=== PATIENT | male | born 1970 | race Caucasian/White ===

== ENCOUNTER 2021-11-24 18:29 | Inpatient (IN) | payer SELFPAY ==
[~2021-11-24] VITALS: Ht 170.2 cm; Wt 89.4 kg
[2021-11-24 18:31] VITALS: BP 138/93
[2021-11-24 19:07] LABS: BASOPHILS # (AUTO) 0.1 K/uL (0.00-0.22); EOSINOPHILS # (AUTO) 0.3 K/uL (0-0.4); EOSINOPHILS % (AUTO) 3.4 % (0.0-4.0); HEMATOCRIT 43.5 % (36-52); HEMOGLOBIN 14.7 g/dL (12.0-18.0); LYMPHOCYTES # (AUTO) 2.7 K/uL (2.0-11.5); MEAN CORPUSCULAR HEMOGLOBIN 29 pg (27-31); MEAN CORPUSCULAR HGB CONC 34 g/dL (33-37); MEAN CORPUSCULAR VOLUME 85.5 fL (80-94); MONOCYTES # (AUTO) 0.9 K/uL (0.8-1.0); MONOCYTES % (AUTO) 10.8 % (1.7-9.3); NEUTROPHILS # (AUTO) 4.4 K/uL (1.8-7.7); NEUTROPHILS % (AUTO) 52.8 % (42.2-75.2); PLATELET COUNT (AUTO) 427 K/uL (140-450); RED BLOOD CELL COUNT(AUTO) 5.09 MIL/uL (4.20-6.10); RED CELL DISTRIBUTION WIDTH 13.8 % (11.6-13.7); WHITE BLOOD COUNT (AUTO) 8.4 K/uL (4.8-10.8)
[2021-11-24 19:36] LABS: ALBUMIN 3.4 g/dL (3.4-5.0); ANION GAP 13.3 (8-16); ASPARTATE AMINOTRANSFERASE 15 U/L (15-37); CARBON DIOXIDE 28.6 mmol/L (21-32); CHLORIDE 105 mmol/L (98-107); CREATININE 1.2 mg/dL (0.6-1.3); GFR ARICAN-AMERICAN 82 mL/min (>90); GLUCOSE 106 mg/dL (74-106); POTASSIUM 3.9 mmol/L (3.5-5.1); SODIUM SERUM 143 mmol/L (136-145); TOTAL BILIRUBIN 0.3 mg/dL (0.0-1.0); UREA NITROGEN, BLOOD 18 mg/dL (7-18)
--- NOTE | 2021-11-24 19:50 | NUR ---
Patient resting in bed, A/Ox3, chest rise and fall symmetrical, no c/o pain or s/s of discomfort.
--- NOTE | 2021-11-24 20:30 | NUR ---
Patient resting in bed, A/Ox3, chest rise and fall symmetrical, no c/o pain or s/s of discomfort.
[2021-11-24] MEDS ORDERED: NALOXONE 0.4 MG/ML VIAL IVP ONE ×3 (20:40→22:20)
[2021-11-24] MEDS ORDERED: NACL 0.9% 1,000 ML IV ONE (21:00)
--- NOTE | 2021-11-24 21:08 | NUR ---
Patient resting in bed, A/Ox3, chest rise and fall symmetrical, no c/o pain or s/s of discomfort.
[2021-11-24] MEDS ORDERED: NACL 0.9% IV SCH (22:30)
[2021-11-24] MEDS ORDERED: NALOXONE PFS IV SCH (22:30)
[2021-11-24] MEDS ORDERED: NALOXONE 0.4 MG/ML VIAL ONE ×2 (23:08→23:10)
--- NOTE | 2021-11-24 23:45 | NUR ---
Narcan (2mg in NS 500mL bag)drip started at 1mg per hour, via 18G left AC. NADR
[2021-11-24] MEDS: NALOXONE IV SCH (23:56)
[2021-11-24] MEDS: NACL 0.9% IV SCH (23:56)
[2021-11-25] VITALS (12 sets, daily range): BP systolic 99–133; BP diastolic 65–83
[2021-11-25 01:13] LABS: BARBITURATE, URINE NEGATIVE ng/ml (NEG <=200); BENZODIAZEPINE, URINE NEGATIVE ng/mL (NEG <=200); COCAINE, URINE NEGATIVE ng/mL (NEG <=300)
[2021-11-25 01:14] LABS: CANNABINOID, URINE POSITIVE ng/mL (NEG <=50); OPIATE, URINE NEGATIVE ng/mL (NEG <=2000); PHENCYCLIDINE SCREEN,URINE NEGATIVE ng/mL (NEG <=25)
--- NOTE | 2021-11-25 02:18 | NUR ---
Dr. Francois contacted via phoe and verbally informed that patient's Narcan drip has run out and Brush Worker stated that there is no more Narcan available in hospital. Dr. Francois verbalized understanding and ordered BiPAP and 0400 ABG. Order readback confirmed, orders entered. RT arrived and applying BiPap to patient.
--- NOTE | 2021-11-25 03:00 | NUR ---
Patient is laying in bed, respirations even and unlabored, patient on Bipap.
--- NOTE | 2021-11-25 03:19 | NUR ---
Asked RN if there is a need for narcan drip; told the nurse that can call the pharmacist for narcan drip
--- NOTE | 2021-11-25 03:27 | NUR ---
Remodeler Juan Luis MALDONADO called and informed that Dr. Francois confirmed continuing Narcan drip, and Remodeler verbalized understanding. Remodeler to call pharmacy.
--- NOTE | 2021-11-25 03:31 | NUR ---
Texted Jose Eduardo pharmacist, stated in the hospital in 20 minutes to make narcan drip
--- NOTE | 2021-11-25 04:00 | NUR ---
Respiratory Therapist at bedside
--- NOTE | 2021-11-25 04:09 | NUR ---
Jose Eduardo Pharmacist made only 1 bag 2mg in 500ml NS; stated to wait in the morning for another bag because there is not enough narcan
[2021-11-25] MEDS ORDERED: NALOXONE 0.4 MG/ML VIAL ONE ×2 (04:15→04:16)
[2021-11-25] MEDS ORDERED: NALOXONE 0.4 MG/ML VIAL IVP ONE (04:20)
--- NOTE | 2021-11-25 04:40 | NUR ---
BI-PAP REMOVED PER PT REQUEST, PT IS IN NO RESPIRATORY DISTRESS. PT IS ON ROOM AIR AT THIS TIME. BI-PAP ON STAND-BY IN PT ROOM. WILL CONTINUE TO MONITOR. FOOLOW-UP ABG ORDERED BY DR. PAGE AT 0600
[2021-11-25] MEDS ORDERED: DOCUSATE SODIUM 100 MG GELCAP PO PRN (05:00)
[2021-11-25] MEDS ORDERED: ONDANSETRON 4 MG/2 ML VIAL IM/IVP PRN (05:00)
[2021-11-25] MEDS ORDERED: POTASSIUM CHLORIDE 10 MEQ TABER PO PRN (05:00)
[2021-11-25] MEDS ORDERED: ALBUTEROL SULFATE/IPRATROPIU 3 ML SOL IH PRN (05:00)
[2021-11-25] MEDS ORDERED: ZOLPIDEM 5 MG TAB PO PRN (05:00)
[2021-11-25] MEDS ORDERED: ACETAMINOPHEN 325 MG TAB PO PRN (05:00)
[2021-11-25] MEDS ORDERED: HYDROcodone/APAP 7.5/325 MG 1 TAB PO PRN (05:00)
[2021-11-25] MEDS ORDERED: guaiFENesin DM 200/20 MG-10 ML 10 ML UDC PO PRN (05:00)
[2021-11-25] MEDS: NACL 0.9% IV SCH ×5 (05:28→21:31)
[2021-11-25] MEDS: NALOXONE IV SCH (05:28)
--- NOTE | 2021-11-25 05:28 | NUR ---
Patient's RR decreased to 8, Narcan drip started, 1mg/hr, per Dr. Francois orders.
--- NOTE | 2021-11-25 05:35 | NUR ---
Patient is A/Ox4, laying in bed, chest rise and fall even, respirations unlabored, patient on Narcan drip, no c/o pain or s/s of discomfort.
--- NOTE | 2021-11-25 06:00 | NUR ---
Patient is A/Ox4, laying in bed, chest rise and fall even, respirations unlabored, patient on Narcan drip, no c/o pain or s/s of discomfort.
--- NOTE | 2021-11-25 06:04 | NUR ---
Dr. Francois examining patient.
--- NOTE | 2021-11-25 06:05 | NUR ---
Dr. Francois at patient bedside speaking with patient.
--- NOTE | 2021-11-25 07:03 | NUR ---
Patient is A/Ox4, laying in bed, chest rise and fall even, respirations unlabored, patient on Narcan drip, no c/o pain or s/s of discomfort.
--- NOTE | 2021-11-25 07:16 | NUR ---
PT MOVED TO ER BED 4
[2021-11-25 07:22] LABS: BASOPHILS % (AUTO) 0.2 % (0.0-2.0); HEMATOCRIT 41.8 % (36-52); LYMPHOCYTES # (AUTO) 0.6 K/uL (2.0-11.5); MEAN CORPUSCULAR HEMOGLOBIN 29 pg (27-31); MEAN CORPUSCULAR HGB CONC 34 g/dL (33-37); MEAN CORPUSCULAR VOLUME 85.7 fL (80-94); MONOCYTES # (AUTO) 1.3 K/uL (0.8-1.0); NEUTROPHILS # (AUTO) 16.7 K/uL (1.8-7.7); NEUTROPHILS % (AUTO) 89.8 % (42.2-75.2); PLATELET COUNT (AUTO) 389 K/uL (140-450); RED BLOOD CELL COUNT(AUTO) 4.88 MIL/uL (4.20-6.10); RED CELL DISTRIBUTION WIDTH 13.8 % (11.6-13.7); WHITE BLOOD COUNT (AUTO) 18.6 K/uL (4.8-10.8)
--- NOTE | 2021-11-25 07:34 | NUR ---
Change of shift report given to AM shift Nurse Kalen MALDONADO. AM shift Nurse Kalen MALDONADO verbalized understanding, no further questions.
[2021-11-25 07:53] LABS: PROTHROMBIN TIME 10.5 secs (10.8-13.4)
[2021-11-25 08:02] LABS: ANION GAP 13.1 (8-16); CARBON DIOXIDE 25.8 mmol/L (21-32); CREATININE 1.2 mg/dL (0.6-1.3); POTASSIUM 4.9 mmol/L (3.5-5.1)
[2021-11-25 08:03] LABS: MAGNESIUM 1.7 mg/dL (1.8-2.4); THYROID STIMULATING HORMONE 0.21 uIU/mL (0.34-3.74)
[2021-11-25] MEDS: PANTOPRAZOLE 40 MG TABEC PO SCH (09:00)
--- NOTE | 2021-11-25 09:10 | NUR ---
SWITCHED PT TO 7L HIGH FLOW BUBBLER. SATURATION 97%
--- NOTE | 2021-11-25 09:28 | NUR ---
PATIENT HAS BEEN SCREENED AND CATEGORIZED LOW NUTRITION RISK. PATIENT WILL BE SEEN WITHIN 7 DAYS OF ADMISSION. 12/02/[address]
--- NOTE | 2021-11-25 12:33 | NUR ---
Patient will be admitted to care of Dr. Francois. Admited to ICU. Will go to room 2. Belongings list completed. Report to Dinesh, TRACTOR DRILL OPERATOR.
--- NOTE | 2021-11-25 12:40 | NUR ---
PT TRANSFERRED FROM ER TO ICU BED 5. SBAR REPORT RECEIVED FROM CARLA MALDONADO, ALL CARES ASSUMED. PT AMBULATED WITH ASSISTANCE FROM [place] TO BED. PT ON 4L NC. IIV CATHETER 18G TO LEFT FOREARM INTACT, RUNNING NARCAN DRIP AT 1MG/HR. PT AWAKE AND ALERT, CONVERSING WITH STAFF. BED IN LOW, LOCKED POSITION, CALL LIGHT WITHIN REACH.
[2021-11-25] MEDS: NALOXONE PFS IV SCH ×4 (13:12→21:31)
--- NOTE | 2021-11-25 15:00 | NUR ---
SPOKE WITH SISTER DAVE, UPDATE GIVEN, ALL QUESTIONS ANSWERED AT THIS TIME. SISTER ALSO SPOKE WITH PT AT TIME OF CALL.
--- NOTE | 2021-11-25 15:22 | NUR ---
DC PLANNING SATHYA MET WITH PATIENT AT [facility] TO COMPLETE ASSESSMENT. PATIENT REPORTS RESIDING AT HOME [place] AT THE ADDRESS LISTED ON FILE. PATIENT IDENTIFIED GARRY ALMARAZ, BROTHER, EMERGENCY CONTACT AND MDM. PATIENT DENIED HAVING AD IN PLACE AND DECLINED AD OFFERED BY SATHYA. PATIENT REPORTS HE CURRENTLY STARTED NEW JOB AND CURRENTLY DOES NOT HAVE A PCP. PATIENT STRUGGLED TO RECALL VISIT WITH PCP AND REPORTS LONGER THAN 2 YEARS AGO. PATIENT REPORTS NEW EMPLOYMENT WITH [employer] ABOUT 3-4 WEEKS AGO. PATIENT REPORTS HE DOES NOT TAKE MEDICATION AT THIS TIME. PATIENT REPORTS BEIGN AMBULATORY AND DENIES USE OF DME. PATIENT CAN COMPLETE ALL ADL'S INDEPENDENTLY. PATIENT DENIED MH HX. 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 PATIENT REPORTS THIS HOSPITALIZATION WAS DUE TO COCAINE USE AND HAVING NO IDEA WHAT IT WAS LACED WITH. SATHYA ATTEMPTED TO PROVIDE PATIENT WITH PSYCHOEDUCATION ON SUBSTANCE USE, HOWEVER, PATIENT ADAMANTLY DENIES USE, PRIOR TO THIS INCIDENT. PATIENT REFUSED SUBSTANCE USE RESOURCES OFFERED BY SATHYA. PATIENT REPORTS DC PLAN IS TO RETURN HOME ONCE MEDICALLY STABLE. SATHYA INQUIRED ON RESOURCES NEEDED, PATIENT DECLINED.
[2021-11-25] MEDS ORDERED: MAG SULF 2000 MG/WATER PREMIX 50 ML IV ONE (19:00)
--- NOTE | 2021-11-25 19:20 | NUR ---
Assumed pt care report recveived Addendum: 11/25/21 at 2342 by Agency Nurse 23, JOEL RN @ 1920 bedside report received from Angeles MALDONADO
--- NOTE | 2021-11-25 19:23 | NUR ---
SBAR REPORT GIVEN TO WILLIAM MALDONADO, ALL CARES ENDORSED.
--- NOTE | 2021-11-25 19:46 | NUR ---
Pt awake alert oriented x4 denies pain moves all extremities no traces distress. Ongoing Narcan drip as report pt overdose on Fentanyl drip @0.6MJG/HR tolerating well no complaints. Oxygen support 4liters nasal canulla O2 SAT 97% RR 9 to 10 vitals signs stable afebrile. Pt education on care plan encouraged to verbalized his concerns, bed in low position, call light at reach no withdrawal symptoms noted no neuro deficit noted moves in all extremities and against resistance . Continue to monitor and treat as per care plan
--- NOTE | 2021-11-25 20:36 | NUR ---
Received telephone call from Poison control spoke to Kimani updates on pt's condition rate of Narcan drip, vitals signs, suggestion is to continue same treatments and monitor pt's response/condition
[2021-11-26] VITALS (13 sets, daily range): BP systolic 97–131; BP diastolic 49–99
--- NOTE | 2021-11-26 04:10 | NUR ---
Assisted to dangle at the bedside stood up, used the urinal and went back to bed denies pain no dizziness ongoing Narcan drip now @ 0.2mg/hr vitals signs stable and back to bed.
[2021-11-26 05:56] LABS: BASOPHILS % (AUTO) 0.3 % (0.0-2.0); EOSINOPHILS # (AUTO) 0.1 K/uL (0-0.4); EOSINOPHILS % (AUTO) 0.6 % (0.0-4.0); HEMATOCRIT 36.6 % (36-52); HEMOGLOBIN 12.4 g/dL (12.0-18.0); LYMPHOCYTES # (AUTO) 1.1 K/uL (2.0-11.5); LYMPHOCYTES % (AUTO) 7.7 % (20.5-51.1); MEAN CORPUSCULAR HEMOGLOBIN 29 pg (27-31); MEAN CORPUSCULAR HGB CONC 34 g/dL (33-37); MEAN CORPUSCULAR VOLUME 85.7 fL (80-94); MONOCYTES # (AUTO) 1.1 K/uL (0.8-1.0); MONOCYTES % (AUTO) 7.5 % (1.7-9.3); NEUTROPHILS # (AUTO) 12.5 K/uL (1.8-7.7); NEUTROPHILS % (AUTO) 83.9 % (42.2-75.2); PLATELET COUNT (AUTO) 322 K/uL (140-450); RED BLOOD CELL COUNT(AUTO) 4.26 MIL/uL (4.20-6.10); RED CELL DISTRIBUTION WIDTH 14.1 % (11.6-13.7); WHITE BLOOD COUNT (AUTO) 14.8 K/uL (4.8-10.8)
[2021-11-26 05:57] LABS: ANION GAP 8.9 (8-16); CARBON DIOXIDE 28.3 mmol/L (21-32); CREATININE 0.9 mg/dL (0.6-1.3); POTASSIUM 4.2 mmol/L (3.5-5.1)
[2021-11-26] MEDS: NALOXONE PFS IV SCH (07:23)
[2021-11-26] MEDS: NACL 0.9% IV SCH (07:23)
--- NOTE | 2021-11-26 07:42 | NUR ---
Change of shift report given Usama MALDONADO for continuity of care. pt restful asleep no chnages in condition, vitals signs stable tolerating well al care and tx..
--- NOTE | 2021-11-26 08:10 | NUR ---
DR. PAGE AT BEDSIDE. RECEIVED ORDERS TO HOLD NARCAN DRIP. PT IS STABLE. NO DISTRESS NOTED. WILL CONTINUE TO MONITOR.
--- NOTE | 2021-11-26 08:15 | NUR ---
RECEIVED AND ENDORSED CARE OF PT FROM SONOGRAPHY TECHNOLOGIST NURSE WILLIAM MALDONADO. PT IS IN BED SLEEPING WITH NO SIGNS OF DISTRESS. PT IS ON 4L NC AT THIS TIME STATING AT 96%. ON GOING NARCAN DRIP, TOLERATING WELL NO COMPLAINTS. VITALS STABLE WITH RR AT 15. SAFETY PRECAUTIONS IN PLACE, BED IN LOW POSITION, CALL LIGHT IN REACH. NO WITHDRAWAL SYMPTOMS AT THIS TIME, NO NEURO DEFICITS NOTED, MOVES ALL EXTREMITIES, FOLLOWS COMMANDS, AND UNDERSTANDS THE PLAN. WILL CONTINUE TO MONITOR AND TREAT PER CARE PLAN.
[2021-11-26] MEDS: PANTOPRAZOLE 40 MG TABEC PO SCH (08:43)
--- NOTE | 2021-11-26 10:15 | NUR ---
PT RESTING IN BED. VITALS STABLE. WILL CONTINUE TO MONITOR
--- NOTE | 2021-11-26 12:15 | NUR ---
PT WAS GIVEN HIS LUNCH TO EAT. NO SIGNS OF DISTRESS OR LABORED BREATHING. WILL CONTINUE TO MONITOR.
[2021-11-26 14:34] LABS: APPEARANCE,URINE CLEAR (CLEAR); BILIRUBIN,URINE NEGATIVE (NEGATIVE); BLOOD, URINE NEGATIVE (NEGATIVE); COLOR,URINE YELLOW (YELLOW); LEUKOCYTE ESTERASE ,URINE NEGATIVE (NEGATIVE); NITRITE, URINE NEGATIVE (NEGATIVE); UGLUCOSE NEGATIVE (NEGATIVE)
--- NOTE | 2021-11-26 15:46 | NUR ---
SANTY FROM POISON CONTROL CALLED AND GAVE UPDATE ON PT. SHE SAID SINCE HE HAS BEEN STABLE OFF NARCAN SINCE THIS MORNING THAT THEY ARE GOING TO CLOSE THE CASE. SHE ALSO SAID IF WE NEED ANYTHING TO CALL THEM.
--- NOTE | 2021-11-26 17:45 | NUR ---
RECEIVED PT FROM MARKET CONSULTANTJOEL GALEANA. PT WHEELED FROM ICU TO [facility] VIA WHEELCHAIR. PT ALERT AND AWAKE. RESPIRATIONS EVEN AND UNLABORED ON 2L NC. NO DISTRESS NOTED. WOUND DRESSING NOTED ON BASE OF NECK AT THE BACK. IV SITE ON LAC 18G, SL. PT ORIENTED TO ROOM, UNIT AND ROUTINE. CALL LIGHT WITHIN REACH. SAFETY PRECAUTIONS IN PLACE. WILL CONTINUE TO MONITOR.
--- NOTE | 2021-11-26 19:21 | NUR ---
ENDORSED PT TO REPORTS ANALYSIS MANAGER NURSE AT BEDSIDE FOR CONTINUITY OF CARE. PT SITTING IN BED, TOO SLEEPY. DONE EATING DINNER. NO DISTRESS NOTED. ALL NEEDS MET THROUGHOUT SHIFT. PT IS STABLE.
--- NOTE | 2021-11-26 19:30 | NUR ---
RECEIVED REPORT FROM DAY SHIFT NURSE ISAAC FOR CONTINUITY OF CARE. PATIENT IS A&O X4. PATIENT IS ON NASAL CANULA 2L, BREATHING IS NORMAL WITH SYMMETRICAL RISE AND FALL OF CHEST. IV IS A 18G LAC, NO FLUIDS RUNNING AT THIS TIME (SALINE LOCKED). PATIENT HAS A BANDAGE UNDER HIS NECK ON THE LEFT SIDE OF HIS BACK. PATIENT STATES THAT IT'S THE WOUND IS FROM SKIN CANCER. PATIENT IS TIRED AND STATED HE WOULD TRY AND GET SOME SLEEP. BED IS IN LOWEST POSITION, WHEELS LOCKED, CALL LIGHT IN PLACE. WILL CONTINUE TO OBSERVE PATIENT.
--- NOTE | 2021-11-26 20:20 | NUR ---
OBTAINED 1999 VITALS. VITALS WERE: BP 117/69, HR 115, 02 93, RR 16, TEMP 98.4. PATIENT WAS ASLEEP UPON ENTERING THE ROOM. INFORMED PATIENT THAT I NEEDED TO GIVE HIM HIS HEPARIN INJECTION AND DO HIS VITALS. PATIENT TOLERATED INJECTION AND VITALS WELL. UPON COMPLETION PATIENT ROLLED OVER TO GO BACK TO SLEEP. WILL CONTINUE TO OBSERVE PATIENT.
--- NOTE | 2021-11-26 23:15 | NUR ---
PATIENT CALLED AND REQUESTED A URINAL. BROUGHT PATIENT A URINAL, PATIENT VOIDED 300 ML OF URINE. AFTER VOIDED PATIENT ROLLED OVER TO GO BACK TO SLEEP. WILL CONTINUE TO OBSERVE PATIENT.
--- NOTE | 2021-11-27 01:30 | NUR ---
LOOKED IN ON PATIENT. PATIENT WAS SLEEPING. BREATHING WAS NORMAL WITH SYMMETRICAL RISE AND FALL OF CHEST. NO IV RUNNING. WILL CONTINUE TO OBSERVE PATIENT.
--- NOTE | 2021-11-27 03:30 | NUR ---
LOOKED IN ON PATIENT. PATIENT WAS SLEEPING, LYING ON SIDE. PATIENT'S BREATHING WAS NORMAL WITH SYMMETRICAL RISE AND FALL OF CHEST. WILL CONTINUE TO OBSERVE PATIENT.
[2021-11-27 04:00] VITALS: BP 121/74
--- NOTE | 2021-11-27 05:00 | NUR ---
OBTAINED 0400 VITALS. VITALS WERE: BP 121/74, HR 97, O2 96, RR 16, TEMP 97.9. EMPTIED PATIENT'S URINAL; EMPTIED 300ML. PATIENT WAS SLEEPING UPON ENTERING THE ROOM. PATIENT STATED THAT HE WAS GOING TO GO BACK TO SLEEP AFTER VITALS WERE COMPLETED. BREATHING WAS NORMAL WITH SYMMETRICAL RISE AND FALL OF CHEST. WILL CONTINUE TO OBSERVE PATIENT.
[2021-11-27 06:59] LABS: BASOPHILS % (AUTO) 0.4 % (0.0-2.0); EOSINOPHILS # (AUTO) 0.1 K/uL (0-0.4); EOSINOPHILS % (AUTO) 1.2 % (0.0-4.0); LYMPHOCYTES % (AUTO) 9.1 % (20.5-51.1); MEAN CORPUSCULAR HEMOGLOBIN 29 pg (27-31); MEAN CORPUSCULAR HGB CONC 35 g/dL (33-37); MEAN CORPUSCULAR VOLUME 84.4 fL (80-94); MONOCYTES # (AUTO) 1.4 K/uL (0.8-1.0); MONOCYTES % (AUTO) 13.4 % (1.7-9.3); NEUTROPHILS # (AUTO) 8.1 K/uL (1.8-7.7); NEUTROPHILS % (AUTO) 75.9 % (42.2-75.2); PLATELET COUNT (AUTO) 274 K/uL (140-450); RED BLOOD CELL COUNT(AUTO) 3.79 MIL/uL (4.20-6.10); RED CELL DISTRIBUTION WIDTH 13.5 % (11.6-13.7); WHITE BLOOD COUNT (AUTO) 10.7 K/uL (4.8-10.8)
[2021-11-27 07:07] LABS: ANION GAP 10.6 (8-16); CARBON DIOXIDE 28.1 mmol/L (21-32); CREATININE 0.7 mg/dL (0.6-1.3); POTASSIUM 3.7 mmol/L (3.5-5.1)
--- NOTE | 2021-11-27 07:40 | NUR ---
ENDORSED TO DAY SHIFT NURSE KELLI FOR CONTINUITY OF CARE. PATIENT IS STABLE.
[2021-11-27] MEDS: PANTOPRAZOLE 40 MG TABEC PO SCH (09:00)
--- NOTE | 2021-11-27 12:30 | NUR ---
patient given and signed discharge instructions. pt verbalized understanding .. no prescriptions. pt to make follow-up visit with pcp. discharged home ambulatory.
== END 2021-11-27 12:35 | disposition home or self-care (01) | DRG 917 ==
LOC: MED 18:29 → MTU 11-25 01:50 → MIC 11-25 12:29 → MTU 11-26 18:30
PROVIDERS: ADMIT Student in an Organized Health Care Education/Training Program; ATTEND Student in an Organized Health Care Education/Training Program
PROC: 5A09357 Assistance with Respiratory Ventilation, Less than 24 Consecutive Hours, Continuous Positive Airway Pressure (ICD-10-PCS; principal; 2021-11-25)
DX: T40.2X1A Poisoning by other opioids, accidental (unintentional), initial encounter (principal); G92.8 Other toxic encephalopathy; J96.01 Acute respiratory failure with hypoxia; J96.02 Acute respiratory failure with hypercapnia; F15.10 Other stimulant abuse, uncomplicated; F14.10 Cocaine abuse, uncomplicated; Z20.822 Contact with and (suspected) exposure to COVID-19; Y92.89 Other specified places as the place of occurrence of the external cause
CPT/HCPCS: 36415; 36600; 71045; 80048; 80053; 80305; 81003; 82150; 82803; 83036; 83690; 83735; 83880; 84100; 84443; 84484; 85025; 85610; 85730; 87081; 93005; 96361; 96374; 96376; 99291; J1644; J2310; J3475; J7030